=== PATIENT | female | born 1965 | race Caucasian/White ===

== ENCOUNTER → 2017-08-05 | Emergency (ER) | payer OTHER ==
[~2017-08-05] MED LIST: ACETAMINOPHEN 325 MG TABLET (FP) ONE; ACETAMINOPHEN 325 MG TABLET (FP) PO ONE; ALBUTEROL SO4 2.5/IPRATROPIUM 0.5 INH SOL 3 ML VIAL.NEB. NEB ONE; DEXAMETHASONE SOD PHOSPHATE 10 MG/1 ML VIAL IVPUSH ONE; DEXAMETHASONE SOD PHOSPHATE 10 MG/1 ML VIAL ONE
[2017-08-06 01:13] VITALS: BP 107/84; PULSE 130; TEMP 99.6; BMI 41.5
--- NOTE | 2017-08-06 01:38 | PDOC ---
History of Present Illness - General Chief Complaint: Asthma Stated Complaint: ASTHMA Time Seen by Provider: 08/06/17 01:38 - History of Present Illness Initial Comments: 08/06/17 01:39 Ms. Nader Bhagat is a 51 yo female w/ pmh of HLD, non-insulin dependent diabetes , asthma, anxiety, and depression who presents complaining of a several day history of dry cough with post nasal drip, ear pressure and back "tightness." She reports taking her rescue inhaler at home as well as spiriva with little relief of symptoms. The patient denies chest pain, headache and dizziness. Denies fever, chills, nausea, vomit, diarrhea and constipation. Denies dysuria, frequency, urgency and hematuria. Allergies: Codeine Past History - Past Medical History Allergies/Adverse Reactions: Allergies Allergy/AdvReac Type Severity Reaction Status Date / Time codeine Allergy Verified 08/06/17 01:10 Home Medications: Ambulatory Orders Albuterol Sulfate Inhaler - [Ventolin Hfa Inhaler -] 1 - 2 inh PO QID PRN Amlodipine Besylate [Norvasc -] mg PO DAILY 06/11/16 Buprenorphine [Butrans] 1 each TD ASDIR 06/11/16 Bupropion HCl [Wellbutrin Xl -] 300 mg PO DAILY 06/11/16 Diazepam [Valium] 5 mg PO Q8H PRN 06/11/16 Furosemide [Lasix] 40 mg PO DAILY 06/11/16 Gabapentin [Neurontin] mg PO DAILY 06/11/16 Ibuprofen [Advil -] 600 mg PO QID PRN 06/11/16 Liraglutide [Victoza -] 1.8 mg SQ DAILY@0700 06/11/16 Losartan Potassium [Cozaar -] mg PO DAILY 06/11/16 Montelukast Na [Singulair -] 10 mg PO HS 06/11/16 metFORMIN HCL [Glucophage -] mg PO BID 06/11/16 Ondansetron [Zofran *Odt*] 8 mg SL TID #30 od.tablet 06/12/16 Oxycodone HCl/Acetaminophen [Percocet 5-325 mg Tablet] 1 - 2 tab PO Q6H #20 tab MDD 5 06/12/16 predniSONE [Deltasone -] 40 mg PO DAILY 2 Days #4 tablet 08/06/17 Diabetes: Yes HTN: Yes Hypercholesterolemia: Yes (cannot recall med) Psychiatric Problems: Yes (depression) - Suicide/Smoking/Psychosocial Hx Smoking History: Never smoked Have you smoked in the past 12 months: No Information on smoking cessation initiated: No Hx Alcohol Use: No Drug/Substance Use Hx: No Review of Systems - Review of Systems Comments:: 08/06/17 02:11 GENERAL/CONSTITUTIONAL: No fever or chills. No weakness. HEAD, EYES, EARS, NOSE AND THROAT: +Ear pressure. No change in vision. No sore throat. CARDIOVASCULAR: No chest pain RESPIRATORY: +2 days of dry cough with chest tightness. No wheezing or hemoptysis. GASTROINTESTINAL: No nausea, vomiting, diarrhea or constipation. GENITOURINARY: No dysuria, frequency, or change in urination. MUSCULOSKELETAL: No joint or muscle swelling or pain. No neck or back pain. SKIN: No rash NEUROLOGIC: No headache, vertigo, loss of consciousness, or change in strength/ sensation. ENDOCRINE: No increased thirst. No abnormal weight change HEMATOLOGIC/LYMPHATIC: No anemia, easy bleeding, or history of blood clots. ALLERGIC/IMMUNOLOGIC: No hives or skin allergy. *Physical Exam - Vital Signs Last Vital Signs Temp Pulse Resp BP Pulse Ox 99.6 F 130 H 14 107/84 93 L 08/06/17 01:11 08/06/17 01:11 08/06/17 01:11 08/06/17 01:11 08/06/17 01:11 - Physical Exam Comments: 08/06/17 02:13 GENERAL: Awake, alert, and fully oriented, in no acute distress HEAD: No signs of trauma, normocephalic, atraumatic EYES: PERRLA, EOMI, sclera anicteric, conjunctiva clear ENT: Auricles normal inspection, hearing grossly normal, nares patent, oropharynx clear without exudates. Moist mucosa NECK: Normal ROM, supple, no lymphadenopathy, JVD, or masses LUNGS: +Lungs tight throughout lung domínguez. No distress, speaks full sentences HEART: Regular rate and rhythm, normal S1 and S2, no murmurs, rubs or gallops, peripheral pulses normal and equal bilaterally. ABDOMEN: Soft, nontender, normoactive bowel sounds. No guarding, no rebound. No masses EXTREMITIES: Normal inspection, Normal range of motion, no edema. No clubbing or cyanosis. NEUROLOGICAL: Cranial nerves II through XII grossly intact. Normal speech, normal gait, no focal sensorimotor deficits SKIN: Warm, Dry, normal turgor, no rashes or lesions noted. ED Treatment Course - LABORATORY CBC & Chemistry Diagram: 08/06/17 02:54 08/06/17 02:54 Medical Decision Making - Medical Decision Making 08/06/17 02:46 Ms. Nader Bhagat is a 51 yo female w/ pmh as described presenting w/ symptoms consistent w/ asthma exacerbation. Steroids / duonebs ordered for relief with basic labs sent for evaluation. 08/06/17 04:16 Patient reports general resolution of symptoms with dexamethasone and duonebs. Peak flow increased from 325 to 350. Lungs sound much improved on repeat exam. Discharging patient with prednisone Rx to follow-up dexamethasone IV push. Patient will follow-up with primary care provider for further evaluation. Reports she has already gotten information from PCP for payroll tax specialist and will follow-up with them as well. *DC/Admit/Observation/Transfer Diagnosis at time of Disposition: Asthma exacerbation Qualifiers: Asthma severity: unspecified severity Asthma persistence: unspecified Qualified Code(s): J45.901 - Unspecified asthma with (acute) exacerbation - Discharge Dispostion Disposition: HOME - Prescriptions Prescriptions: predniSONE [Deltasone -] 40 mg PO DAILY 2 Days #4 tablet - Referrals Referrals: ON STAFF,NOT [Primary Care Provider] - - Patient Instructions Printed Discharge Instructions: Asthma -- Adult Additional Instructions: Please return if any difficulty breathing, shortness of breath, or other concerning symptoms. Follow-up with primary care provider as discussed for further evaluation. - Post Discharge Activity
[2017-08-06] MEDS: ALBUTEROL SO4 2.5/IPRATROPIUM 0.5 INH SOL 3 ML VIAL.NEB. NEB SCH ×3 (02:49→03:11)
[2017-08-06 03:17] LABS: BASO % 0.7 % (0-2.0); EOS % 1.5 % (0-4.5); HEMATOCRIT 41.8 % (32.4-45.2); HEMOGLOBIN 13.6 GM/dL (10.7-15.3); LYMPH % 18.4 % (8-40); MCH 28.5 pg (25.7-33.7); MCHC 32.6 g/dl (32.0-36.0); MEAN CELL VOLUME 87.5 fl (80-96); MEAN PLT VOLUME 6.9 fl (7.5-11.1); MONO % 9.6 % (3.8-10.2); NEUT % 69.8 % (42.8-82.8); PLATELET COUNT 353 K/MM3 (134-434); RBC 4.78 M/mm3 (3.60-5.2); RDW 14.6 % (11.6-15.6); WHITE BLOOD COUNT 8.7 K/mm3 (4.0-10.0)
[2017-08-06 03:38] LABS: ALBUMIN 3.7 g/dl (3.4-5.0); ALK PHOS 139 U/L (45-117); ANION GAP 8 (8-16); BILIRUBIN,TOTAL 0.3 mg/dL (0.2-1.0); BLOOD UREA NITROGEN 13 mg/dL (7-18); CALCIUM 8.6 mg/dL (8.5-10.1); CHLORIDE 99 mmol/L (98-107); CO2 29 mmol/L (21-32); GLUCOSE,RANDOM 207 mg/dL (74-106); POTASSIUM 4.1 mmol/L (3.5-5.1); SGOT/AST 51 U/L (15-37); SGPT/ALT 35 U/L (12-78); SODIUM 136 mmol/L (136-145)
--- NOTE | 2017-08-07 17:11 | EKG ---
Test Reason : Blood Pressure : / mmHG Vent. Rate : 116 BPM Atrial Rate : 116 BPM P-R Int : 142 ms QRS Dur : 076 ms QT Int : 312 ms P-R-T Axes : 034 -21 013 degrees QTc Int : 433 ms SINUS TACHYCARDIA VOLTAGE CRITERIA FOR LEFT VENTRICULAR HYPERTROPHY INFERIOR INFARCT , AGE UNDETERMINED ABNORMAL ECG WHEN COMPARED WITH ECG OF 12-OCT-2010 10:09, VENT. RATE HAS INCREASED BY 43 BPM INFERIOR INFARCT IS NOW PRESENT Confirmed by MAURICE SCOTT MD ([id number]) on 08/07/2017 5:10:53 PM Referred By: Confirmed By:MAURICE SCOTT MD
== END | disposition home or self-care (01) ==
LOC: JER 23:48
PROC: 3E0F7GC Introduction of Other Therapeutic Substance into Respiratory Tract, Via Natural or Artificial Opening (ICD-10-PCS; principal; 2017-08-05)
PROC: 3E0333Z Introduction of Anti-inflammatory into Peripheral Vein, Percutaneous Approach (ICD-10-PCS; 2017-08-05)
DX: J45.901 Unspecified asthma with (acute) exacerbation (principal); E11.9 Type 2 diabetes mellitus without complications; Z79.84 Long term (current) use of oral hypoglycemic drugs; F41.8 Other specified anxiety disorders; E78.00 Pure hypercholesterolemia, unspecified
CPT/HCPCS: 36415; 71046-TC-FY; 80053; 85025; 93005; 93010; 99281-25; J1100

== ENCOUNTER 2024-03-29 21:55 | Emergency (ER) | payer OTHER, MEDICARE ==
[2024-03-29 22:00] VITALS: RESP 18; TEMP 98.3; BMI 39.6
[2024-03-29] MEDS ORDERED: ACETAMINOPHEN INJECTION 100 ML ONE (22:46)
[2024-03-29] MEDS: LACTATED RINGERS SOLUTION 1000 ML INFUS.BAG IV ONE (22:57)
[2024-03-29] MEDS: ACETAMINOPHEN 1000 MG/100 ML BAG IVPB ONE (22:57)
[2024-03-29 23:06] LABS: BASO % 0.3 % (0-2.0); EOS % 2.4 % (0-4.5); HEMATOCRIT 39.1 % (32.4-45.2); HEMOGLOBIN 12.5 GM/dL (10.7-15.3); LYMPH % 27.9 % (8-40); MCH 29.8 pg (25.7-33.7); MCHC 31.9 g/dl (32.0-36.0); MEAN CELL VOLUME 93.4 fl (80-96); MEAN PLT VOLUME 6.7 fl (7.5-11.1); MONO % 5.9 % (3.8-10.2); NEUT % 63.5 % (42.8-82.8); PLATELET COUNT 372 10^3/uL (134-434); RBC 4.18 M/mm3 (3.60-5.2); RDW 14.6 % (11.6-15.6)
[2024-03-29] MEDS ORDERED: METHOCARBAMOL 500 MG TABLET ONE (23:09)
[2024-03-29] MEDS: METHOCARBAMOL 750 MG TABLET PO ONE (23:14)
[2024-03-29] MEDS ORDERED: METOCLOPRAMIDE HCL INJECTION 10 MG/2 ML VIAL ONE (23:20)
[2024-03-29 23:22] LABS: INR 0.87 (0.83-1.09)
[2024-03-29 23:24] LABS: ACTIVATED PTT 26.8 SECONDS (25.2-36.5)
[2024-03-29] MEDS: METOCLOPRAMIDE HCL INJECTION 10 MG/2 ML VIAL IVPB ONE (23:25)
[2024-03-29 23:28] LABS: POTASSIUM 3.9 mmol/L (3.5-5.1)
[2024-03-29 23:30] LABS: CALCIUM 9.2 mg/dL (8.5-10.1)
[2024-03-29 23:31] LABS: ALBUMIN 3.3 g/dl (3.4-5.0); BLOOD UREA NITROGEN 13.8 mg/dL (7-18); MAGNESIUM 1.9 mg/dL (1.8-2.4)
[2024-03-29 23:34] LABS: CREATININE 0.8 mg/dL (0.55-1.3)
[2024-03-29 23:35] LABS: BILIRUBIN,TOTAL 0.5 mg/dL (0.2-1); TOT PROT 6.5 g/dl (6.4-8.2)
[2024-03-29 23:44] VITALS: BP 160/83; PULSE 84
[2024-03-30] MEDS ORDERED: MAGNESIUM 1GM/D5W - 1 GM/100 ML IVPB IVPB ONE (00:06)
[2024-03-30] MEDS: MAGNESIUM 1GM/D5W - 1 GM/100 ML IVPB IVPB ONE (00:10)
[2024-03-30] MEDS ORDERED: ONDANSETRON 4 MG/2 ML VIAL ONE (00:22)
[2024-03-30] MEDS: ONDANSETRON 4 MG/2 ML VIAL IVPUSH ONE (00:26)
[2024-03-30 00:28] LABS: HIV INTERPRETATION NEGATIVE (NEGATIVE)
== END 2024-03-30 01:39 | disposition home or self-care (01) ==
LOC: JER 21:55
PROC: 3E033GC Introduction of Other Therapeutic Substance into Peripheral Vein, Percutaneous Approach (ICD-10-PCS; principal; 2024-03-29)
PROC: 3E033NZ Introduction of Analgesics, Hypnotics, Sedatives into Peripheral Vein, Percutaneous Approach (ICD-10-PCS; 2024-03-29)
PROC: 3E033GC Introduction of Other Therapeutic Substance into Peripheral Vein, Percutaneous Approach (ICD-10-PCS; 2024-03-29)
PROC: 3E033GC Introduction of Other Therapeutic Substance into Peripheral Vein, Percutaneous Approach (ICD-10-PCS; 2024-03-29)
DX: R51.9 Headache, unspecified (principal); R00.0 Tachycardia, unspecified
CPT/HCPCS: 36415; 70450-TC; 80053; 82962; 83735; 85025; 85610; 85730; 86803; 86850; 86870; 86880; 86900; 86901; 86902; 87389; 93005; 93010; 99285-25; J0131